=== PATIENT | male | born 1970 | race Caucasian/White ===

== ENCOUNTER 2016-05-14 08:51 | Inpatient (IN) | payer MEDICARE, OTHER ==
[2016-05-07 10:28] LABS: HEMATOCRIT 38.3 % (40.0-51.0); HEMOGLOBIN 12.4 g/dL (13.6-17.8)
[2016-05-07 10:45] LABS: BUN (BLOOD UREA NITROGEN) 12 MG/DL (6-23); CALCIUM, SERUM 8.8 MG/DL (8.5-10.4); CHLORIDE, SERUM 107 MMOL/L (96-112); CO2 (CARBON DIOXIDE) 28 MMOL/L (24-34); CREATININE 1.63 MG/DL (0.70-1.30); GFR AFRICAN AMERICAN 57 ML/MIN (>=60); GFR NON AFRICAN AMERICAN 49 ML/MIN (>=60); GLUCOSE, SERUM 92 MG/DL (60-99); POTASSIUM, SERUM 4.3 MMOL/L (3.5-5.3); SODIUM, SERUM 142 MMOL/L (135-148)
--- NOTE | ~2016-05-14 | OP ---
Record Of Operation [facility] [address] [place]. [address] NAME: RAGHAVENDRA RAMIREZ : 66 STATUS : DIS IN PAT#: [id number] AGE: 45 ADM/REG DATE : 05/14/16 MR#: [id number] REPORT SERV DATE: 05/19/16 DICTATED BY: WENDIE CAMERON II DATE: 05/19/16 REPORT STATUS : Draft TRANSCRIBED BY: MODL DATE: 05/19/16 DATE OF PROCEDURE: 05/14/2016 PREOPERATIVE DIAGNOSES: 1. Lumbar spinal stenosis, L4-L5, L5-S1. 2. History of L5-S1 surgery. 3. Discogenic low back pain. 4. L4-L5, L5-S1 spondylosis. POSTOPERATIVE DIAGNOSES: 1. Lumbar spinal stenosis, L4-L5, L5-S1. 2. History of L5-S1 surgery. 3. Discogenic low back pain. 4. L4-L5, L5-S1 spondylosis. PROCEDURES: 1. Revision decompression and laminectomy and facetectomy, L5-S1. 2. Lumbar laminectomy and facetectomy, L4-L5. 3. Interbody arthrodesis, L4-L5, L5-S1. 4. Application of prosthetic devices, L4-L5, L5-S1. 5. Posterolateral arthrodesis, L4-L5, L5-S1. 6. Posterior segmental instrumentation, L4-L5, L5-S1. 7. Use of local autograft, allograft substitute, and bone morphogenic protein. 8. Use of the microscope and stereotactic spinal imaging. SURGEON: Wendie Cameron M.D. FLUIDS: 1800 mL LR. ESTIMATED BLOOD LOSS: 200 mL. DRAIN: One drain. COMPLICATIONS: No complications. ANTIBIOTIC: Preoperatively. IMPLANTS: Alphatec. PREOPERATIVE HISTORY: This is a very friendly 45-year-old gentleman, who reports surgery approximately six to seven years ago. He reports now having equal amounts of back pain and leg pain. We discussed the pros and cons of surgery. We discussed the ability of the surgery to decrease back pain and leg pain respectively. We again discussed the odds of success versus failure regarding each category. We discussed the risks which include, but are not limited to infection, abscess, CSF leak, Record Of Operation [facility] [address] [place]. [address] NAME: RAGHAVENDRA RAMIREZ : 66 STATUS : DIS IN PAT#: [id number] AGE: 45 ADM/REG DATE : 05/14/16 MR#: [id number] REPORT SERV DATE: 05/19/16 DICTATED BY: WENDIE CAMERON II DATE: 05/19/16 REPORT STATUS : Draft TRANSCRIBED BY: MODDelmar DATE: 05/19/16 foot drop, nerve root injury, adjacent segment degeneration, and a small chance of stroke and . DESCRIPTION OF PROCEDURE: After informed consent was obtained, the patient was brought to the operating room at his request and general anesthesia achieved. He was placed in the prone position and the back was prepped and draped in a sterile fashion. The iliac crest was chosen on the right for placement of the iliac crest stereotactic pin. The minimally invasive incision was now performed at L4-L5 and L5-S1 on the left. The dissection was rather difficult because of the patient's muscular habitus. We were able to then place the minimally invasive quadrant retractors acceptably at L4-L5 and L5-S1. The microscope was then brought into place, and under microscopic visualization, the stereotactic spinal system was used to create pedicle screw paths. Under microscopic visualization, the facetectomy was now performed at L5-S1. This was a revision facetectomy. The high-speed bur was used to create a pedicle to pedicle decompression. The L5 nerve root was found to have significant compression on it from the superior articular facet. This facet as well as the inferior facet were now completely removed with the L5 and S1 nerve roots acceptably decompressed. Next, the interbody arthrodesis was initiated at L5-S1. The S1 nerve root was gently retracted followed by diskectomy at L5-S1. The efren and curettes were used to remove cartilage from the disk space. The punctate bleeding bone was identified on both endplates. After irrigation, the local autograft and allograft substitute were placed into the anterior disk space. Next, the prosthetic device was then well placed into the anterior column of L5 S1. Next, the L4-L5 level was addressed in a similar manner with the laminectomy and facetectomy. The bilateral decompression was also achieved through the unilateral approach. The dura was then well identified and the ligamentum flavum removed and the facetectomy completely performed on the left. Both the L4 and L5 nerve roots were now found to be well decompressed. Next, the interbody arthrodesis was initiated with diskectomy. The endplates were now prepared with the pituitary rongeurs, Kerrison rongeurs, and the curettes. The punctate bleeding bone was identified followed by placement of local autograft into the anterior column. A small portion of bone morphogenic protein was also placed followed by placement of the prosthetic device. Next, the pedicle screws were applied into L4, L5, and S1 on the left. On the right, we placed percutaneous screws into L4 and S1. A repeat CT scan confirmed acceptable placement of the implants. The rods were then well assembled and final tightening performed. Again, after confirmation of proper placement of the implants with the repeat CT scan, the transverse processes were now decorticated on the left at L4-L5 and the sacral ala. Local autograft, allograft substitute, and bone morphogenic protein were then placed along these decorticated surfaces. A deep drain was placed followed by standard closure and the patient was then extubated and transferred to PACU in stable condition. Record Of Operation [address] [address] NAME: RAGHAVENDRA RAMIREZ : 66 STATUS : DIS IN PAT#: [id number] AGE: 45 ADM/REG DATE : 05/14/16 MR#: [id number] REPORT SERV DATE: 05/19/16 DICTATED BY: WENDIE CAMERON II DATE: 05/19/16 REPORT STATUS : Draft TRANSCRIBED BY: LIU DATE: 05/19/16 SHANW/LIU Wendie Cameron II, M.D. / [id number] CC: Snehal Villegas II, M.D.
--- NOTE | ~2016-05-14 | DS ---
Discharge Summary [facility] [address] [place]. [address] NAME: RAGHAVENDRA RAMIREZ : 66 STATUS : DIS IN PAT#: [id number] AGE: 45 ADM/REG DATE : 05/14/16 MR#: [id number] REPORT SERV DATE: 05/25/16 DICTATED BY: WENDIE CAMERON II DATE: 05/24/16 REPORT STATUS : Draft TRANSCRIBED BY: LIU DATE: 05/24/16 Data Collection from hospitalization DISCHARGE DIAGNOSES: 1. Lumbar spinal stenosis, L4-L5 and L5-S1. 2. History of L5-S1 surgery. 3. Diskogenic low back pain. 4. L4-L5 and L5-S1 spondylosis. 5. Hypertension. 6. Anxiety. 7. Congestive heart failure. 8. Depression. 9. Epileptic seizure. 10.Irritable bowel syndrome. 11.History of myocardial infarction. 12.Rheumatoid arthritis. 13.History of stroke. 14.Chews tobacco. CONSULTATIONS: None. PROCEDURES PERFORMED: Revision decompression and laminectomy and facetectomy L5-S1. Lumbar laminectomy and facetectomy, L4-L5. Interbody arthrodesis, L4-L5 and L5-S1. Application of prosthetic devices, L4-L5 and L5-S1. Posterolateral arthrodesis, L4-L5 and L5-S1. Posterior segmental instrumentation, L4-L5 and L5-S1. Use of local autograft, allograft substitute, and bone morphogenic protein. Use of microscope and stereotactic spinal imaging, 05/14/2016. PATHOLOGY: Bone and tissue, lumbar spine - fragments of fibrocartilage consistent with disk material. Additional fragments of benign skeletal muscle and bone with trilineage hematopoiesis. DISCHARGE MEDICATIONS: Valium 2 mg every six hours as needed, Neurontin 600 mg three times a day, Osteo Bi-Flex one tablet twice a day, Keppra 750 mg three times a day, melatonin 10 mg at bedtime, MS Contin 30 mg every 12 hours, multivitamins with minerals one tablet daily, Roxicodone 15 mg every six hours as needed, MiraLAX powder one packet daily, Risperdal 4.5 mg three times a day, Carafate 1 g twice a day, and coconut oil one capsule daily. CONDITION AT DISCHARGE: Stable. DISPOSITION: The patient was discharged home on a regular diet with activities as instructed. He will follow up with me on 06/06/2016. HOSPITAL COURSE: This is a 45-year-old man who complained of low back pain radiating into the bilateral lower extremities with numbness and tingling. He has lumbar spinal stenosis, L4-L5 and L5-S1. He has diskogenic low back pain and L4-L5 and L5-S1 spondylosis. He has a history of L5-S1 surgery. Treatment options were discussed, and it was elected to proceed with surgical intervention. He was admitted to the hospital for further evaluation and Discharge Summary [address] [address] NAME: RAGHAVENDRA RAMIREZ : 66 STATUS : DIS IN PAT#: [id number] AGE: 45 ADM/REG DATE : 05/14/16 MR#: [id number] REPORT SERV DATE: 05/25/16 DICTATED BY: WENDIE CAMERON II DATE: 05/24/16 REPORT STATUS : Draft TRANSCRIBED BY: MODL DATE: 05/24/16 treatment. Upon admission, he was taken to the operating room where he underwent the above-mentioned procedure. He tolerated this well. There were no complications. On postop day #1, he did complain of low back pain. He was alert and cooperative. He had a normal respiratory effort. He was evaluated by Physical Therapy. On postop day 2, he did have some nausea, this has improved. His dressings remained clean, dry, and intact. He had no edema. The RAIL SPECIALIST was stopped. NORBERTO drain was going to be discontinued. Discharge planning was performed. On 05/17/2016, he was up sitting in a bedside chair. He wanted to go home. He was ambulating with Physical Therapy. Discharge instructions were given. Due to his improved and stable condition, he was discharged home with the above-stated instructions. Information collected by: Wandy Benton I submit the above information as my discharge summary. CARLOS A/LIU Wendie Cameron II, M.D. / [id number] CC: Snehal Villegas II, M.D. Jose Justiniano, M.D.
[~2016-05-14 08:51] MED LIST: ADVIL PO; AMB10 PO; ASAB PO; ATV1 PO; BUSPAR15 M1 PO; BUSPAR30 MG PO; CARDCD240 PO; COCONUT OIL PO; FISH-EPA1000 MG PO; KEPPRA750 MG PO; KLONO2 PO; LEVSINTAB PO; LIBRAX PO; LOP25 PO; LOP50 PO; MELATONIN5 M1 PO; METHADONE10 MG/5 ML PO; METPAKSF PO; MEVACOR PO; MIRALAX POWDER1 PKT PO; MORPHINE S20 MG/5 ML PO; MSIMMREL PO; MULTIPLE VIT PO; MULTIVIT/MIN PO; NEUR300 PO; NEUR600 PO; NEURUDL250 PO; NEXIUM40 PO; NORCO1 TAB PO; OSTEO BI-FLEX1 EACH PO; PEP20 PO; PERCOCET1 TA4 PO; PERPHENAZINE4 MG OR; PERPHENAZINE8 MG OR; PHENADOZ25 MG PEG; POTASSIUM PO; PR25 PO; PREV30 PO; PRILO PO; REMERON30 MG PO; REMERON45 MG PO; RISP3 PO; SENTAB PO; SEROQUEL200 MG PO; SIN25 PO; SUCR PO; T PO; TEG200 PO; TRAZ50 PO; ZANAFLEX 4 MG TA4 MG PO; ZONEGRAN PO; [UNRECOGNIZED DRUG - OTHER] PO
[2016-05-17] MEDS ORDERED: V2 PO (09:31)
[2016-05-17] MEDS ORDERED: ROXICODONE15 MG PO (09:31)
[2016-05-17] MEDS ORDERED: MSCONTIN PO (09:31)
== END 2016-05-17 11:54 | disposition home or self-care (01) | DRG 460 ==
LOC: SDC/OF 08:51 → PACU 14:36 → 3SO 15:32
PROVIDERS: Orthopaedic Surgery
PROC: 0SG00AJ Fusion of Lumbar Vertebral Joint with Interbody Fusion Device, Posterior Approach, Anterior Column, Open Approach (ICD-10-PCS; principal; 2016-05-14 10:45)
PROC: 0SG30AJ Fusion of Lumbosacral Joint with Interbody Fusion Device, Posterior Approach, Anterior Column, Open Approach (ICD-10-PCS; 2016-05-14 10:45)
PROC: 4A11X4G Monitoring of Peripheral Nervous Electrical Activity, Intraoperative, External Approach (ICD-10-PCS; 2016-05-14 10:45)
DX: M51.36 Other intervertebral disc degeneration, lumbar region (principal); F32.9 Major depressive disorder, single episode, unspecified; G47.33 Obstructive sleep apnea (adult) (pediatric); F41.9 Anxiety disorder, unspecified
CPT/HCPCS: 80048; 82962; 85014; 85018; 87641; 88304; 88311; 93005; 97116-GP; 97161-GP; A9270-GY; C1713; C1768; G8978-CK-GP; G8979-CI-GP; J1170; J1580; J2250; J2405; J2550; J2710; J3010; J3370

== ENCOUNTER 2016-05-19 14:30 | Emergency (ER) | payer MEDICARE ==
[~2016-05-19 14:30] MED LIST changes: +MSCONTIN PO; +ROXICODONE15 MG PO; +V2 PO
[2016-05-19 15:29] LABS: BASOPHILS 0.2 %; BASOPHILS ABSOLUTE 0.02 10/3/uL (0.0-0.16); EOSINOPHILS 4.5 %; EOSINOPHILS ABSOLUTE 0.41 10/3/uL (0.0-0.53); ER CBC TAT 0 Hrs 05 Mins; IMMATURE GRANULOCYTES 1.1 %; LYMPHOCYTES 19.9 %; LYMPHOCYTES ABSOLUTE 1.83 10/3/uL (0.67-4.30); MEAN CORPUS HGB CONC 33.6 g/dL (32.0-36.0); MEAN CORPUSCULAR HEMOGLOB 29.9 pg (26.0-34.0); MEAN CORPUSCULAR VOLUME 89.1 fL (80-100); MEAN PLATELET VOLUME 9.1 fL (9.2-13.0); MONOCYTES 13.2 %; MONOCYTES ABSOLUTE 1.21 10/3/uL (0.21-1.20); NEUTROPHILS 61.1 %; NEUTROPHILS ABSOLUTE 5.62 10/3/uL (2.02-8.40); PLATELET COUNT 323 10/3/uL (150-400); RBC DISTRIBUTION WIDTH 12.8 % (12.0-16.0); WHITE BLOOD CELLS 9.2 10/3/uL (4.5-10.5)
[2016-05-19 15:31] LABS: HEMATOCRIT 29.5 % (40.0-51.0); HEMOGLOBIN 9.9 g/dL (13.6-17.8); MANUAL DIFF NO %; RED CELL COUNT 3.31 10/6/uL (4.7-6.1)
[2016-05-19 15:47] LABS: A/G RATIO 0.7 (0.7-1.9); ALBUMIN 3.1 G/DL (3.5-5.0); ALKALINE PHOSPHATASE 57 U/L (45-117); BUN (BLOOD UREA NITROGEN) 9 MG/DL (6-23); CALCIUM, SERUM 8.8 MG/DL (8.5-10.4); CHLORIDE, SERUM 101 MMOL/L (96-112); CO2 (CARBON DIOXIDE) 33 MMOL/L (24-34); CREATININE 1.41 MG/DL (0.70-1.30); GFR AFRICAN AMERICAN 68 ML/MIN (>=60); GFR NON AFRICAN AMERICAN 59 ML/MIN (>=60); GLOBULIN 4.3 G/DL (2.5-4.1); GLUCOSE, SERUM 100 MG/DL (60-99); SGOT(AST) 37 U/L (5-40); SGPT(ALT) 31 U/L (5-65); SODIUM, SERUM 139 MMOL/L (135-148); TOTAL BILIRUBIN 0.6 MG/DL (0-1.2); TOTAL PROTEIN 7.4 G/DL (6.0-8.5)
[2016-05-19 16:10] LABS: PROCALCITONIN < 0.05 ng/mL (<0.5)
[2016-05-19 17:10] LABS: ASCORBIC ACID (UR NOT ORDER) NEG (NEG); BILIRUBIN, URINE NEGATIVE (NEG); ER URINALYSIS TAT 0 Hrs 07 Mins; KETONE, URINE TRACE MG/DL (NEG); LEUKOCYTE ESTERASE(NOT OR NEG (NEG); NITRITE (URINE) NEG (NEG); WBC (NOT ORDERED) (RFLEX) < 1 (0-5)
[2016-05-19 17:20] LABS: INFLUENZA A SCREEN NEGATIVE (NEGATIVE); INFLUENZA B SCREEN NEGATIVE (NEGATIVE)
== END 2016-05-19 18:25 | disposition home or self-care (01) ==
LOC: ER 14:30
PROVIDERS: Emergency Medicine
DX: G89.18 Other acute postprocedural pain (principal); M54.5 Low back pain; I25.2 Old myocardial infarction; G20 Parkinson's disease; F31.9 Bipolar disorder, unspecified; Z87.442 Personal history of urinary calculi; Z87.01 Personal history of pneumonia (recurrent); Z86.73 Personal history of transient ischemic attack (TIA), and cerebral infarction without residual deficits; Z87.891 Personal history of nicotine dependence; Z88.0 Allergy status to penicillin; Z88.8 Allergy status to other drugs, medicaments and biological substances; Z79.899 Other long term (current) drug therapy
CPT/HCPCS: 71010; 80053; 81001; 83605; 84145; 85025; 87040; 87804; 99284; A9270-GY

== ENCOUNTER 2016-06-12 19:17 | Emergency (ER) | payer MEDICARE, OTHER ==
[2016-06-12 18:57] LABS: BASOPHILS 0.5 %; BASOPHILS ABSOLUTE 0.06 10/3/uL (0.0-0.16); EOSINOPHILS 0.5 %; EOSINOPHILS ABSOLUTE 0.06 10/3/uL (0.0-0.53); ER CBC TAT 0 Hrs 05 Mins; IMMATURE GRANULOCYTES 1.9 %; IMMATURE GRANULOCYTES ABSOLUTE 0.21 10/3/uL (0.0-0.11); LYMPHOCYTES 22.6 %; LYMPHOCYTES ABSOLUTE 2.48 10/3/uL (0.67-4.30); MEAN CORPUS HGB CONC 32.4 g/dL (32.0-36.0); MEAN CORPUSCULAR HEMOGLOB 28.7 pg (26.0-34.0); MEAN CORPUSCULAR VOLUME 88.7 fL (80-100); MEAN PLATELET VOLUME 9.5 fL (9.2-13.0); MONOCYTES 9.8 %; MONOCYTES ABSOLUTE 1.07 10/3/uL (0.21-1.20); NEUTROPHILS 64.7 %; NEUTROPHILS ABSOLUTE 7.09 10/3/uL (2.02-8.40); PLATELET COUNT 361 10/3/uL (150-400); RBC DISTRIBUTION WIDTH 13.1 % (12.0-16.0)
[2016-06-12 18:59] LABS: HEMATOCRIT 38.3 % (40.0-51.0); HEMOGLOBIN 12.4 g/dL (13.6-17.8); MANUAL DIFF NO %; RED CELL COUNT 4.32 10/6/uL (4.7-6.1)
[2016-06-12 19:24] LABS: BASOPHILS 2 %; BASOPHILS ABSOLUTE (CALC) 0.22 10/3/uL (0.0-0.16); EOSINOPHILS 2 %; EOSINOPHILS ABSOLUTE (CALC) 0.22 10/3/uL (0.0-0.53); ER DIFF TAT 0 Hrs 32 Mins; LYMPHOCYTES 21 %; LYMPHOCYTES ABSOLUTE (CALC) 2.31 10/3/uL (0.67-4.30); MONOCYTES 12 %; MONOCYTES ABSOLUTE (CALC) 1.32 10/3/uL (0.21-1.20); NEUTROPHILS ABSOLUTE (CALC) 6.93 10/3/uL (2.02-8.40); PLATELET ESTIMATE ADQ (ADEQUATE); SEGMENTED NEUTROPHIL (0) 63 %; TOTAL NUCLEATED CELLS 100
[2016-06-12 19:26] LABS: A/G RATIO 0.8 (0.7-1.9); ALBUMIN 3.4 G/DL (3.5-5.0); CALCIUM, SERUM 8.9 MG/DL (8.5-10.4); CHLORIDE, SERUM 107 MMOL/L (96-112); CREATININE 1.36 MG/DL (0.70-1.30); GFR AFRICAN AMERICAN 71 ML/MIN (>=60); GFR NON AFRICAN AMERICAN 62 ML/MIN (>=60); GLOBULIN 4.2 G/DL (2.5-4.1); GLUCOSE, SERUM 89 MG/DL (60-99); POTASSIUM, SERUM 4.2 MMOL/L (3.5-5.3); SGOT(AST) 10 U/L (5-40); SGPT(ALT) 18 U/L (5-65); SODIUM, SERUM 141 MMOL/L (135-148); TOTAL PROTEIN 7.6 G/DL (6.0-8.5)
[2016-06-12 19:29] LABS: ALKALINE PHOSPHATASE 116 U/L (45-117); BUN (BLOOD UREA NITROGEN) 15 MG/DL (6-23); CO2 (CARBON DIOXIDE) 21 MMOL/L (24-34); TOTAL BILIRUBIN 0.1 MG/DL (0-1.2)
== END 2016-06-12 22:16 | disposition home or self-care (01) ==
LOC: ER 19:17
PROVIDERS: Emergency Medicine
DX: M54.5 Low back pain (principal); I25.2 Old myocardial infarction; F32.9 Major depressive disorder, single episode, unspecified; Z87.891 Personal history of nicotine dependence; Z86.73 Personal history of transient ischemic attack (TIA), and cerebral infarction without residual deficits; Z88.0 Allergy status to penicillin; Z79.899 Other long term (current) drug therapy
CPT/HCPCS: 72131; 80053; 85025; 96374; 96375; 96376; 99284; J1170; J2405

== ENCOUNTER 2016-06-30 20:57 | Emergency (ER) | payer MEDICARE, OTHER ==
[2016-06-30 21:00] LABS: BASOPHILS 0.5 %; BASOPHILS ABSOLUTE 0.04 10/3/uL (0.0-0.16); EOSINOPHILS 8.4 %; EOSINOPHILS ABSOLUTE 0.67 10/3/uL (0.0-0.53); ER CBC TAT 0 Hrs 08 Mins; HEMATOCRIT 33.9 % (40.0-51.0); HEMOGLOBIN 10.9 g/dL (13.6-17.8); IMMATURE GRANULOCYTES 0.1 %; IMMATURE GRANULOCYTES ABSOLUTE 0.01 10/3/uL (0.0-0.11); LYMPHOCYTES 26.4 %; LYMPHOCYTES ABSOLUTE 2.09 10/3/uL (0.67-4.30); MANUAL DIFF NO %; MEAN CORPUS HGB CONC 32.2 g/dL (32.0-36.0); MEAN CORPUSCULAR HEMOGLOB 29.1 pg (26.0-34.0); MEAN CORPUSCULAR VOLUME 90.6 fL (80-100); MEAN PLATELET VOLUME 9.8 fL (9.2-13.0); MONOCYTES 7.9 %; MONOCYTES ABSOLUTE 0.63 10/3/uL (0.21-1.20); NEUTROPHILS 56.7 %; NEUTROPHILS ABSOLUTE 4.49 10/3/uL (2.02-8.40); PLATELET COUNT 320 10/3/uL (150-400); RED CELL COUNT 3.74 10/6/uL (4.7-6.1); WHITE BLOOD CELLS 7.9 10/3/uL (4.5-10.5)
[2016-06-30 21:12] LABS: BUN (BLOOD UREA NITROGEN) 15 MG/DL (6-23); CALCIUM, SERUM 8.8 MG/DL (8.5-10.4); CHLORIDE, SERUM 111 MMOL/L (96-112); CREATININE 1.37 MG/DL (0.70-1.30); GFR AFRICAN AMERICAN 71 ML/MIN (>=60); GFR NON AFRICAN AMERICAN 61 ML/MIN (>=60); GLUCOSE, SERUM 103 MG/DL (60-99); SODIUM, SERUM 144 MMOL/L (135-148)
[2016-06-30 21:13] LABS: CO2 (CARBON DIOXIDE) 30 MMOL/L (24-34)
[2016-06-30 21:15] LABS: C-REACTIVE PROTEIN 14.2 MG/L (<8.0)
[2016-06-30 21:17] LABS: ASCORBIC ACID (UR NOT ORDER) NEG (NEG); BILIRUBIN, URINE NEGATIVE (NEG); KETONE, URINE NEGATIVE (NEG); LEUKOCYTE ESTERASE(NOT OR NEG (NEG); NITRITE (URINE) NEG (NEG); WBC (NOT ORDERED) (RFLEX) < 1 (0-5)
== END 2016-06-30 23:37 | disposition home or self-care (01) ==
LOC: ER 20:57
PROVIDERS: Nurse Practitioner Acute Care
DX: M54.5 Low back pain (principal); I25.2 Old myocardial infarction; K21.9 Gastro-esophageal reflux disease without esophagitis; F32.9 Major depressive disorder, single episode, unspecified; I48.91 Unspecified atrial fibrillation; Z87.891 Personal history of nicotine dependence; Z88.0 Allergy status to penicillin; Z88.8 Allergy status to other drugs, medicaments and biological substances; Z79.899 Other long term (current) drug therapy
CPT/HCPCS: 72132; 80048; 81001; 83605; 85025; 86140; 87040; 96374; 96375; 99284; J1170; J2405; Q9967